=== PATIENT | female | born 1955 | race Caucasian/White ===

== ENCOUNTER → 2017-06-30 | Outpatient (CLI) | payer OTHER | LOC: FIMAGING 13:40 | PROVIDERS: ATTEND Physician Assistant Medical | DX: N64.4 Mastodynia (principal) | CPT/HCPCS: G0204 ==

== ENCOUNTER → 2017-08-25 | Outpatient (CLI) | payer OTHER | LOC: BMCIMAGING 12:35 | PROVIDERS: ATTEND Nurse Practitioner Adult Health | DX: Z01.810 Encounter for preprocedural cardiovascular examination (principal); M47.814 Spondylosis without myelopathy or radiculopathy, thoracic region ==

== ENCOUNTER → 2017-12-28 | Outpatient (CLI) | payer OTHER | LOC: FIMAGING 15:56 | PROVIDERS: ATTEND Orthopaedic Surgery | DX: Z01.818 Encounter for other preprocedural examination (principal); M17.11 Unilateral primary osteoarthritis, right knee ==

== ENCOUNTER 2018-02-01 08:36 | Observation (INO) | payer OTHER ==
--- NOTE | 2018-02-01 06:55 | PDHPUP ---
History & Physical Update H&P update statement: This history and physical update is based on an assessment of the patient which was completed after admission or registration (within 24 hours), but prior to the surgery/procedure. H&P update: no change in patient's condition since H&P completed
--- NOTE | 2018-02-01 06:56 | PDIAF ---
- Diagnosis Diagnosis: R knee DJD Code Status: Full Code - Medication Management Discharge Medications: Medications to Continue on Transfer Apixaban [Eliquis] 5 mg PO BID 01/15/18 [Last Taken Unknown] Atorvastatin Calcium [Lipitor 40 mg (*)] 40 mg PO DAILY 01/15/18 [Last Taken Unknown] Cetirizine [ZyrTEC 10 mg (*)] 10 mg PO DAILY 01/15/18 [Last Taken Unknown] Denavir 1 mary TP Q2H PRN 01/15/18 [Last Taken Unknown] Febuxostat [Uloric] 80 mg PO DAILY 01/15/18 [Last Taken Unknown] Levothyroxine [Synthroid 200 mcg (*)] 200 mcg PO DAILY06 01/15/18 [Last Taken Unknown] Levothyroxine [Synthroid 50 mcg (*)] 50 mcg PO DAILY06 01/15/18 [Last Taken Unknown] Metoprolol Tartrate [Lopressor 25 mg (*)] 25 mg PO BID 01/15/18 [Last Taken Unknown] Multivitamins [Multivitamin (*)] 1 each PO DAILY 01/15/18 [Last Taken Unknown] Triamterene/Hydrochlorothiazid [Triamterene-Hctz 50-25 mg Cap] 1 each PO DAILY 01/15/18 [Last Taken Unknown] Discharge Medications: Refer to the Discharge Home Medication list for PRN reason. - Orders Services needed: Physical Therapy Diet Recommendation: no restrictions on diet Activity/Weight Bearing Restrictions: ROM as tolerated, WBAT, daily dressing changes, no soaking or immersion, may shower without bandage, follow up in 2 weeks, contact office for any concerns - Follow Up Care Current Providers and Referrals: Jessenia Waldron MD [Primary Care Provider] -
[~2018-02-01 08:36] MED LIST: BUPI/epINEPH/KETOROLAC/morphINE IU ONE; NS IV ONE; ROPIVACAINE 0.2% 80 MG, EPINEPHrine 0.2 MG, KETOROLAC TROMETHAMINE 30 MG, morphINE 10 M... IU ONE; TRANEXAMIC ACID IV ONE
[2018-02-01] MEDS ORDERED: CALCIUM CHLORIDE 1 GM/10 ML INJ ONE (08:37)
[2018-02-01] MEDS ORDERED: THROMBIN (BOVINE) 5,000 UNIT VIAL TP ONE (08:37)
[2018-02-01] MEDS ORDERED: ceFAZolin 1 GM/5 ML SYR ONE (08:37)
[2018-02-01] MEDS ORDERED: FAMOTIDINE 20 MG TAB PO ONE (09:19)
[2018-02-01] MEDS ORDERED: LR 1,000 ML IV ONE (09:19)
[2018-02-01] MEDS ORDERED: LIDOCAINE 1% 2 ML INJ ID PRN (09:19)
[2018-02-01] MEDS ORDERED: ACETAMINOPHEN 325 MG TAB PO ONE (09:19)
[2018-02-01] MEDS ORDERED: PROPOFOL/EMULSION 500 MG/50 ML BOTTLE IV ONE (10:40)
[2018-02-01] MEDS ORDERED: MIDAZOLAM 2 MG/2 ML VIAL ONE ×2 (10:40→11:47)
[2018-02-01] MEDS ORDERED: LIDOCAINE 2% 5 ML SDV ONE ×2 (10:44→11:49)
[2018-02-01] MEDS ORDERED: METOCLOPRAMIDE 10 MG/2 ML VIAL ONE (10:48)
[2018-02-01] MEDS ORDERED: RANITIDINE 50 MG/2 ML VIAL ONE (10:48)
[2018-02-01] MEDS ORDERED: KETOROLAC 30 MG/1 ML SDV ONE (10:48)
[2018-02-01] MEDS ORDERED: ONDANSETRON 4 MG/2 ML VIAL ONE (10:48)
--- NOTE | 2018-02-01 10:52 | PDANEPAE ---
ANE Past Medical History - Cardiovascular History Hx Hypertension: Yes Hx Arrhythmias: Yes Hx Chest Pain: No Hx Coronary Artery / Peripheral Vascular Disease: Yes Hx CHF / Valvular Disease: No Hx Palpitations: No Cardiovascular History Comment: htn. PAF. hyperlipidemia. 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 constipation on and off - Other Health History Other Health History: wears reading glasses. 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 platelets to left shoulder, neck and back previously - Chronic Pain History Chronic Pain: Yes (bilateral knees, lower back) - Surgical History Prior Surgeries: right acl repair 1984. meniscus repair- right 2003. lap band 2006. MI-K bilateral eyes early ANE Review of Systems Review of Systems: - Exercise capacity METS (RN): 3 METS ANE Patient History - Allergies Allergies/Adverse Reactions: ROSIBEL Inhibitors Allergy (Verified 01/15/18 14:08) dry cough erythromycin base Allergy (Verified 01/15/18 14:08) rash across chest over 30 yrs ago- hasn't taken since - Home Medications Home Medications: Apixaban [Eliquis] 5 mg PO BID 01/15/18 [Last Taken 01/27/18] Atorvastatin Calcium [Lipitor 40 mg (*)] 40 mg PO DAILY 01/15/18 [Last Taken 06/12] Cetirizine [ZyrTEC 10 mg (*)] 10 mg PO DAILY 01/15/18 [Last Taken 01/31/18] Denavir 1 mary TP Q2H PRN 01/15/18 [Last Taken 01/02/18] Febuxostat [Uloric] 80 mg PO DAILY 01/15/18 [Last Taken Unknown] Levothyroxine [Synthroid 200 mcg (*)] 200 mcg PO DAILY06 01/15/18 [Last Taken ] Levothyroxine [Synthroid 50 mcg (*)] 50 mcg PO DAILY06 01/15/18 [Last Taken 07/13] Metoprolol Tartrate [Lopressor 25 mg (*)] 25 mg PO BID 01/15/18 [Last Taken 07/13] Multivitamins [Multivitamin (*)] 1 each PO DAILY 01/15/18 [Last Taken 01/29/18] Triamterene/Hydrochlorothiazid [Triamterene-Hctz 50-25 mg Cap] 1 each PO DAILY 01/15/18 [Last Taken 01/31/18] - NPO status NPO Since - Liquids (Date): 01/31/18 NPO Since - Liquids (Time): 23:00 NPO Since - Solids (Date): 01/31/18 NPO Since - Solids (Time): 21:00 - Smoking Hx Smoking Status: Former smoker - Family Anes Hx Family Hx Anesthesia Complications: none ANE Labs/Vital Signs - Vital Signs Blood Pressure: 142/82 Heart Rate: 80 Respiratory Rate: 18 O2 Sat (%): 92 Height: 157.48 cm Weight: 145.15 kg ANE Physical Exam - Airway Neck exam: FROM, increased neck circumference, short neck Mallampati Score: Class 2 Mouth exam: normal dental/mouth exam, small mouth opening - Pulmonary Pulmonary: no respiratory distress, no rales or rhonchi, reduced air movement - Cardiovascular Cardiovascular: irregularly irregular - ASA Status ASA Status: IV ANE Anesthesia Plan Anesthesia Plan: spinal (Ga back up in case spinal technically difficult)
[2018-02-01] MEDS: ceFAZolin 2 GM/SWFI 2 GM/20 ML SYR IVP ONE ×2 (11:28→12:21)
[2018-02-01] MEDS ORDERED: PHENYLEPHRINE HCL 100 MCG/ML SYR ONE (12:42)
[2018-02-01] MEDS ORDERED: diphenhydrAMINE 25 MG CAP PO PRN (13:02)
[2018-02-01] MEDS ORDERED: ONDANSETRON 4 MG/2 ML VIAL IVP PRN ×2 (13:02→14:25)
[2018-02-01] MEDS ORDERED: PROMETHAZINE HCL 25 MG SUPPR PR PRN (13:02)
[2018-02-01] MEDS ORDERED: METOCLOPRAMIDE 10 MG/2 ML VIAL IVP PRN (13:02)
[2018-02-01] MEDS ORDERED: PROMETHAZINE HCL 25 MG/ML INJ IVP PRN (13:02)
[2018-02-01] MEDS ORDERED: LACTULOSE 20 GM/30 ML UDCUP PO PRN (13:02)
[2018-02-01] MEDS ORDERED: ONDANSETRON DISINTEGRATING 4 MG TAB PO PRN (13:02)
[2018-02-01] MEDS ORDERED: TEMAZEPAM 15 MG CAP PO PRN (13:02)
[2018-02-01] MEDS ORDERED: POLYETHYLENE GLYCOL 3350 17 GM PKT PO PRN (13:02)
[2018-02-01] MEDS ORDERED: BISACODYL 10 MG SUPP PR PRN (13:02)
[2018-02-01] MEDS ORDERED: MAGNESIUM HYDROXIDE 30 ML UDCUP PO PRN (13:02)
[2018-02-01] MEDS ORDERED: DIPHENOXYLATE/ATROPINE LOMOTIL 1 TAB PO PRN (13:02)
[2018-02-01] MEDS ORDERED: ROPIVACAINE HCL 150 MG/30 ML INJ ONE (13:08)
[2018-02-01] MEDS ORDERED: TRANEXAMIC ACID 650 MG TAB PO SCH (13:15)
[2018-02-01] MEDS ORDERED: LR 1,000 ML IV SCH (13:30)
--- NOTE | 2018-02-01 14:16 | POSTANESTH ---
Post Anesthetic Evaluation Cardiovascular Status: Normal, Stable Respiratory Status: Normal, Stable Level of Consciousness/Mental Status: Can Participate in Eval Pain Control: Adequate, Prn Tx Ordered Nausea/Vomiting Control: Adequate, Prn Tx Ordered Complications Possibly Related to Anesthesia: None Noted
[2018-02-01] MEDS ORDERED: DIAZEPAM 5 MG/ML 1 ML SYR IVP PRN (14:25)
[2018-02-01] MEDS ORDERED: NALOXONE HCL 0.4 MG/ML INJ IVP PRN (14:25)
[2018-02-01] MEDS ORDERED: MEPERIDINE 25 MG/ML SYR IVP PRN (14:25)
[2018-02-01] MEDS ORDERED: LR 500 ML IV PRN (14:25)
[2018-02-01] MEDS ORDERED: DEXAMETHASONE 4 MG/ML VIAL IVP PRN (14:25)
[2018-02-01] MEDS ORDERED: ALBUTEROL 3 ML DEYVIAL IH PRN (14:25)
[2018-02-01] MEDS ORDERED: fentaNYL 100 MCG/2 ML INJ IVP PRN (14:25)
[2018-02-01] MEDS: ceFAZolin 2 GM/SWFI 2 GM/20 ML SYR IVP SCH ×2 (17:24→21:42)
[2018-02-01] MEDS: oxyCODONE IR 5 MG TAB PO PRN (17:33)
[2018-02-01] MEDS: DIAZEPAM 5 MG TAB PO PRN ×2 (17:34→23:49)
[2018-02-01] MEDS: TRANEXAMIC ACID 650 MG TAB PO SCH (17:35)
[2018-02-01] MEDS: ACETAMINOPHEN 325 MG TAB PO SCH ×2 (19:12→23:41)
[2018-02-01] MEDS: METOPROLOL TARTRATE 25 MG TAB PO SCH (21:35)
[2018-02-01] MEDS: APIXABAN 5 MG TAB PO SCH (21:37)
[2018-02-01] MEDS: SENNOSIDES/DOCUSATE SODIUM TAB PO SCH (21:37)
[2018-02-01] MEDS: FAMOTIDINE 20 MG TAB PO SCH (21:37)
[2018-02-01] MEDS: ASPIRIN 325 MG TAB PO SCH (21:38)
[2018-02-02] MEDS: TRANEXAMIC ACID 650 MG TAB PO SCH ×2 (02:26→09:06)
[2018-02-02] MEDS: ACETAMINOPHEN 325 MG TAB PO SCH ×2 (05:46→11:53)
[2018-02-02] MEDS ORDERED: LEVOTHYROXINE 200 MCG TAB PO SCH (06:00)
[2018-02-02] MEDS ORDERED: LEVOTHYROXINE 50 MCG TAB PO SCH (06:00)
[2018-02-02] MEDS: oxyCODONE IR 5 MG TAB PO PRN ×2 (07:21→11:56)
--- NOTE | 2018-02-02 07:39 | PDIAF ---
- Diagnosis Diagnosis: R knee DJD Code Status: Full Code - Medication Management Discharge Medications: Medications to Continue on Transfer Apixaban [Eliquis] 5 mg PO BID 01/15/18 [Last Taken 01/27/18] Atorvastatin Calcium [Lipitor 40 mg (*)] 40 mg PO DAILY 01/15/18 [Last Taken 06/12] Cetirizine [ZyrTEC 10 mg (*)] 10 mg PO DAILY 01/15/18 [Last Taken 01/31/18] Denavir 1 mary TP Q2H PRN 01/15/18 [Last Taken 01/02/18] Febuxostat [ULORIC] 80 mg PO DAILY 01/15/18 [Last Taken Unknown] Levothyroxine [Synthroid 200 mcg (*)] 200 mcg PO DAILY06 01/15/18 [Last Taken ] Levothyroxine [Synthroid 50 mcg (*)] 50 mcg PO DAILY06 01/15/18 [Last Taken 07/13] Metoprolol Tartrate [Lopressor 25 mg (*)] 25 mg PO BID 01/15/18 [Last Taken 07/13] Multivitamins [Multivitamin (*)] 1 each PO DAILY 01/15/18 [Last Taken 01/29/18] Triamterene/Hydrochlorothiazid [Triamterene-Hctz 50-25 mg Cap] 1 each PO DAILY 01/15/18 [Last Taken 01/31/18] Diazepam [Valium 5 MG (*)] 5 mg PO Q6HRS PRN #40 tab 02/02/18 [Last Taken Unknown] oxyCODONE IR [Oxycodone Ir (*)] 5 - 10 mg PO Q3HRS PRN #70 tab 02/02/18 [Last Taken Unknown] Discharge Medications: Refer to the Discharge Home Medication list for PRN reason. - Orders Services needed: Physical Therapy Diet Recommendation: no restrictions on diet Diet Texture: Regular Texture Diet Activity/Weight Bearing Restrictions: ROM as tolerated, WBAT, daily dressing changes, no soaking or immersion, may shower without bandage, follow up in 2 weeks, contact office for any concerns - Follow Up Care Current Providers and Referrals: Jessenia Waldron MD [Primary Care Provider] - Valdo Babcock MD [Medical Doctor] -
--- NOTE | 2018-02-02 07:40 | SOAPPROG ---
SOAP Progress Note Assessment/Plan: Assessment: s/p right tka Plan:d/c home eliwqis for dvt f/u at two weeks precautions reviewed 02/02/18 07:39 Subjective: mild pain no cp or sob leonard po Objective: Vital Signs Temp Pulse Resp BP Pulse Ox 37.5 C 83 17 106/75 93 02/02/18 04:49 02/02/18 04:49 02/02/18 04:49 02/02/18 04:49 02/02/18 04:49 Laboratory Results 02/02/18 05:08 02/01/18 02/02/18 02/03/18 05:59 05:59 05:59 Intake Total 2992 Output Total 650 Balance 2342 dressing intact intact pdf,ehl toes warm and pink neg homans sean xrays stable alignement no fx or lucency ICD10 Worksheet Patient Problems: Problems Problem Status Onset Arthritis of knee Acute - ICD10 Problem Qualifiers (1) Arthritis of knee
[2018-02-02] MEDS ORDERED: TRIAMTERENE 50 MG CAP PO SCH (09:00)
[2018-02-02] MEDS ORDERED: ATORVASTATIN CALCIUM 40 MG TAB PO SCH (09:00)
[2018-02-02] MEDS ORDERED: HYDROCHLOROTHIAZIDE PO SCH (09:00)
[2018-02-02] MEDS ORDERED: CETIRIZINE 10 MG TAB PO SCH (09:00)
[2018-02-02] MEDS ORDERED: HYDROCHLOROTHIAZIDE 25 MG TAB PO SCH (09:00)
[2018-02-02] MEDS ORDERED: [UNRECOGNIZED DRUG - OTHER] PO SCH (09:00)
[2018-02-02] MEDS ORDERED: TRIAMTERENE PO SCH (09:00)
[2018-02-02] MEDS: ASPIRIN 325 MG TAB PO SCH (09:02)
[2018-02-02] MEDS: METOPROLOL TARTRATE 25 MG TAB PO SCH (09:03)
[2018-02-02] MEDS: FAMOTIDINE 20 MG TAB PO SCH (09:05)
[2018-02-02] MEDS: APIXABAN 5 MG TAB PO SCH (09:05)
[2018-02-02] MEDS: SENNOSIDES/DOCUSATE SODIUM TAB PO SCH (09:05)
[2018-02-02 11:44] VITALS: BP 108/88
--- NOTE | 2018-02-03 14:44 | ASDISCHSUM ---
Discharge Information Plan Status:Home with Home Health Medically Cleared to Leave: Discharge Date:02/02/2018 12:10 PM CM D/C Disposition:Home Health Service ADT D/C Disposition:Home Health Service Projected Discharge Date:02/02/2018 11:00 AM Transportation at D/C: Discharge Delay Reason: Follow-Up Date:02/02/2018 11:00 AM Discharge Slot: Final Diagnosis: Placement Information Referral Type:*Home Health Care Services Referral ID:[id number] Provider Name:[facility] Address 1:[address] [place] [address] [place] Address 2: City:[place] Selection Factors: State:[place] Patient Contact Information Contact Name:WOODROW Relationship:Other Address: Work Phone: City: [facility] Phone: [facility] Code: Email: Financial Information Financial Class:[facility] Primary Plan Desc:[employer] HMO OPEN ACC LOCAL Primary Plan Number:[id number] Secondary Plan Desc: Secondary Plan Number: Assessment Information [facility] CM Progress Note CM Note CM Note Notes: Pt d/c yesterday, today [facility] confirmed they can accept pt for HHC PT. Orders sent in [facility]. Date Signed: 02/03/2018 02:43 PM Electronically Signed By:LESLIE Chaudhary Intervention Information
--- NOTE | 2018-02-06 07:05 | GDS ---
[f rep st] DISCHARGE SUMMARY ADMISSION DIAGNOSIS: Right knee degenerative joint disease. DISCHARGE DIAGNOSIS: Right knee degenerative joint disease. PROCEDURE: Right total knee arthroplasty, MAKOplasty. HISTORY OF PRESENT ILLNESS: The patient is a 62-year-old woman with end-stage arthritis to her right knee. Clinical and radiographic features consistent with this. She has failed all attempts at cons ervative management. I have, therefore, recommended operative intervention with total knee replaceme nt. She understood the risks, benefits, alternatives, and wished to proceed. Written consent was si gned and placed in the patient's chart. HOSPITAL COURSE: The patient was admitted to the hospital floor after uncomplicated total knee arthr oplasty. She tolerated the procedure well. Postoperative course was uneventful. At the time of dis charge, she is tolerating an oral diet. Pain is well controlled on oral medicines. She is voiding w ithout difficulty. Dressing is clean, dry, and intact. She has negative Homans. X-rays are stable with anatomic alignment. DISCHARGE ACTIVITY: She is weightbearing as tolerated. Range of motion as tolerated. Daily dressin g changes. No soaking or immerging. Seek attention for increasing redness, swelling, drainage, or d ischarge. DISCHARGE MEDICATION: Eliquis daily for DVT prophylaxis, Valium 5 mg 1-2 every 6 hours p.r.n. pain a nd oxycodone 5 mg 1-2 every 6 hours p.r.n. pain. FOLLOWUP: In 2 weeks. /[id number]/MODL
--- NOTE | 2018-02-06 07:15 | GOP ---
[f rep st] OPERATIVE REPORT DATE OF OPERATION: SURGEON: Valdo Babcock MD PREOPERATIVE DIAGNOSIS: Right knee degenerative joint disease. POSTOPERATIVE DIAGNOSIS: Right knee degenerative joint disease. PROCEDURES PERFORMED: Right total knee arthroplasty. Hardware removal, deep implant right knee. FINDINGS: SPECIMENS: The bony cuts. ESTIMATED BLOOD LOSS: 200 cc. INDICATIONS: The patient is a 62-year-old woman with end-stage arthritis to the right knee. Clinical and radiographic features are consistent with this. She has failed attempts at conservative management. I have therefore recommended total knee replacement. She understood the risks, benefits, and alternatives, and wished to proceed. Written consent was signed and placed in patient's chart. DESCRIPTION OF PROCEDURE: The patient was identified in the preanesthesia area. The right knee was clearly demarcated as operative site with indelible marker. She was given 2 g of Ancef intravenously en route to the operative suite. In the OR, a spinal anesthetic was placed, followed by sedation. She was positioned in the supine position. All bony prominences were well padded. Appropriate time-out procedure was carried out. The limb was then sterilely prepped and draped in usual fashion. The limb was exsanguinated with an Esmarch bandage and the tourniquet inflated to 275 mmHg. A standard anterior incision was made. Thick subcutaneous flaps were elevated. The subperiosteal elevation was carried out to the mid coronal plane and retractors were placed. There were gross tricompartmental changes. Two pins were then placed through the distal medial femur within the wound, and a separate incision was made over the distal mid roberson, and 2 pins placed for the tibial reference array. The femoral and tibial checkpoints were then placed. The bony landmarks were entered into the computer in standard fashion. The knee was balanced through the flexion-extension arc with soft tissue releases, and manipulation of the components using the MAKOplasty software. Using the robot, size standard cuts for a size 4 femur were created and the trochlear box cut was created with a separate fixed cutting block. The size 5 tibial resection was then placed. The components were then placed in the correct position, fit appropriately. Trial reduction was carried out. Ultimately, a size 5 x 19 mm thickness polyethylene spacer was selected as the final implant. The trial components were withdrawn, the bony surfaces thoroughly cleansed. The tibia was then impacted and confirmed to be fully seated. The femur was impacted. A 5 x 19 mm polyethylene spacer was then placed and confirmed to be locked into position across the tibia. The knee was brought to full extension and flexion. There was no instability through the flexion-extension arc with varus or valgus stress. Attention was then turned to the kneecap. This was everted, cut in a freehand cutting technique, and drill holes were made for a size 35 mm all poly patella, and the trial reduction was carried out. This was taken through the flexion-extension arc. The patella tracked centrally, and the 35 mm patella was then press-fit into place. The wound was copiously irrigated, the capsule and subcutaneous tissue injected with a joint cocktail of ropivacaine, morphine , Toradol, and epinephrine. The medial parapatellar arthrotomy was closed using #1 Ethibond suture. The knee instilled with the platelet-rich plasma, and the subcutaneous tissue closed using 0 Quill and krista. Sterile dressing was applied. The patient was awakened, extubated, and taken to recovery room in stable condition. The patient had previous hardware from a prior ACL reconstruction which included a staple over the proximal and medial tibia. This was removed without difficulty during the surgical approach to the tibia. TOTAL TOURNIQUET TIME: 55 minutes. COMPLICATIONS: None. IMPLANTS: The Yohana triathlon knee PS femoral component size 4, size 5 tibia , X3 tibial bearing insert 5 x 19 mm thickness, and asymmetrical patella 35 mm. DISPOSITION: To the recovery room, then the floor. /[id number]/MODL and [id number]/MODL [facility]ITAL[facility]manuel
--- NOTE | 2018-02-06 09:16 | GOP ---
[f rep st] OPERATIVE REPORT DATE OF OPERATION: 02/01/2018 SURGEON: Valdo Babcock MD PREOPERATIVE DIAGNOSIS: POSTOPERATIVE DIAGNOSIS: PROCEDURE PERFORMED: FINDINGS: DESCRIPTION OF PROCEDURE: ADDENDUM: Please add the following to the previous dictation. Additional procedure, hardware removal, deep implant right knee. Additional paragraph to the body of the operative description. The patient had previous hardware from a prior ACL reconstruction which included a staple over the proximal and medial tibia. This was coreen evan without difficulty during the surgical approach to the tibia. c/p [facility] [phone] /[id number]/MODL
== END 2018-02-02 12:10 | disposition home health service (06) ==
LOC: INTOOBSV 08:36 → F3N 08:36
PROVIDERS: ADMIT Orthopaedic Surgery; ATTEND Orthopaedic Surgery
PROC: 0SRC0JZ Replacement of Right Knee Joint with Synthetic Substitute, Open Approach (ICD-10-PCS; principal; 2018-02-01 10:59)
PROC: 8E0Y0CZ Robotic Assisted Procedure of Lower Extremity, Open Approach (ICD-10-PCS; principal; 2018-02-01 10:59)
DX: M17.11 Unilateral primary osteoarthritis, right knee (principal); E66.9 Obesity, unspecified; G47.30 Sleep apnea, unspecified; E78.5 Hyperlipidemia, unspecified; E03.9 Hypothyroidism, unspecified; M10.9 Gout, unspecified; J30.9 Allergic rhinitis, unspecified; Z79.01 Long term (current) use of anticoagulants; Z87.891 Personal history of nicotine dependence
CPT/HCPCS: 27447; 73560; 97161; 97166; 97535; G0378; J0171; J0690; J1885; J2250; J2270; J2370; J2405; J2704; J2765; J2780; J2795

== ENCOUNTER → 2018-03-15 | Outpatient (CLI) | payer OTHER | LOC: BIMAGING 10:26 | PROVIDERS: ATTEND Physician Assistant | DX: Z47.1 Aftercare following joint replacement surgery (principal); Z96.651 Presence of right artificial knee joint ==

== ENCOUNTER → 2018-04-19 | Outpatient (CLI) | payer OTHER | LOC: BMCIMAGING 11:06 | PROVIDERS: ATTEND Physician Assistant | DX: M17.12 Unilateral primary osteoarthritis, left knee (principal); M25.561 Pain in right knee; Z96.651 Presence of right artificial knee joint ==

== ENCOUNTER → 2018-07-20 | Outpatient (CLI) | payer OTHER | LOC: BMCIMAGING 14:14 | PROVIDERS: ATTEND Orthopaedic Surgery | DX: Z47.1 Aftercare following joint replacement surgery (principal); Z96.651 Presence of right artificial knee joint ==

== ENCOUNTER → 2018-08-10 | Outpatient (CLI) | payer OTHER | LOC: FIMAGING 15:24 | PROVIDERS: ATTEND Internal Medicine | DX: Z12.31 Encounter for screening mammogram for malignant neoplasm of breast (principal); Z80.3 Family history of malignant neoplasm of breast ==